=== PATIENT | female | born 1955 | race Caucasian/White ===

== ENCOUNTER 2017-08-18 21:40 | Emergency (ER) | payer OTHER ==
[~2017-08-18] VITALS: Ht 167.6 cm; Wt 84.0 kg
[~2017-08-18 21:40] MED LIST: ASPI325T PO; FLON0.053; LISI-360 PO; MAXA10TA2 PO; NEXI10GR PO; XYZA5TAB2 PO
[2017-08-18 21:49] VITALS: BP 147/80; PULSE 82; RESP 20; TEMP 97.5; O2SAT 96
--- NOTE | 2017-08-18 22:20 | PD ---
HPI Chief Complaint: Laceration/Skin Injury Time Seen by Provider: 22:35 Travel History International Travel<30 days: No Contact w/Intl Traveler<30days: No Traveled to known affect area: No History of Present Illness HPI The patient is a [id number] female that states she tripped over her big Labrador dog at home around 6:30 PM tonight and sustained a laceration on the left forehead when she hit the tile floor. There was no loss of consciousness. The patient does not have any nausea or vomiting. The patient admits to drinking one glass of wine prior to this event. She specifically denies any neck pain. She does not recall her last tetanus shot but knows that it is over 5 years ago. PFSH Past Medical History Arthritis: Yes (RIGHT KNEE) Anxiety: Yes Depression: Yes Heart Rhythm Problems: No Cancer: Yes (skin CA bilat shins, forehead) Cardiovascular Problems: Yes High Cholesterol: No Chest Pain: Yes Congestive Heart Failure: No Cerebrovascular Accident: No Diabetes: No Diminished Hearing: No GERD: Yes Genitourinary: No Headaches: Yes Hepatitis: No Hiatal Hernia: No Hypertension: Yes Insomnia: Yes Musculoskeletal: Yes Neurologic: Yes Reproductive: No Respiratory: No Immunizations Current: Yes Migraines: Yes Myocardial Infarction: No Seizures: No Thyroid Disease: No Ulcer: Yes (HISTORY OF ULCER) Tetanus Vaccination: > 5 Years ?: Not Tubal Ligation: Yes Past Surgical History Abdominal Surgery: No Appendectomy: Yes Cardiac Surgery: No Section: Yes Cholecystectomy: No Ear Surgery: No Endocrine Surgery: No Eye Surgery: No Genitourinary Surgery: No Gynecologic Surgery: Yes Hysterectomy: Yes Joint Replacement: Yes (RT KNEE) Oral Surgery: No Thoracic Surgery: No Other Surgery: Yes (gastric bypass, wrists) Social History Alcohol Use: Yes (occasionally) Tobacco Use: No Substance Use: No Allergies-Medications (Allergen,Severity, Reaction): Coded Allergies: erythromycin base (Unverified Allergy, Severe, SHORT OF BREATH, 06/23/17) levofloxacin (Unverified Allergy, Severe, 06/23/17) sulfamethoxazole (Unverified Allergy, Severe, 06/23/17) trimethoprim (Unverified Allergy, Severe, 06/23/17) ibuprofen (Unverified Adverse Reaction, Severe, 06/23/17) CANNOT HAVE DUE TO HX GASTRIC BYPASS morphine (Unverified Adverse Reaction, Mild, VOMITING, 06/23/17) Reported Meds & Prescriptions Reported Meds & Active Scripts Active Reported Tramadol (Tramadol HCl) 50 Mg Tab 50 Mg PO Q8H Ambien (Zolpidem Tartrate) 5 Mg Tab 5 Mg PO HS Cyanocobalamin Inj (Cyanocobalamin) 1,000 Mcg/Ml Inj 1,000 Mcg SQ Q30D Mometasone Topical (Mometasone Furoate) 0.01 % Oint 1 Applic TOPICAL DAILY PRN Dymista Nasal [place] (Azelastine-Fluticasone Nasal [place]) 137-50 Mcg [place] 1 [place] EACH NARE 1X DAY To each nostril. Viibryd (Vilazodone) 10 Mg Tab 10 Mg PO DAILY Levocetirizine 5 Mg Tab 5 Mg PO DAILY Review of Systems Except as stated in HPI: all other systems reviewed are Neg Physical Exam Narrative GENERAL: Well-nourished, well-developed patient who is alert and oriented 3 in minimal apparent distress with her left forehead laceration. Her vital signs show blood pressure 147/80 but are otherwise normal. SKIN: Focused skin assessment warm/dry. There is a 2 cm laceration on the left forehead. There is no associated skull deformity. HEAD: Normocephalic. Neither raccoon eyes nor gonzalez sign is present. EYES: No scleral icterus. No injection or drainage. NECK: Supple, trachea midline. No JVD or lymphadenopathy. There is no posterior spinous process tenderness or deformity, there is no neck tenderness at all. The patient is moving her neck without any problem. CARDIOVASCULAR: Regular rate and rhythm without murmurs, gallops, or rubs. RESPIRATORY: Breath sounds equal bilaterally. No accessory muscle use. GASTROINTESTINAL: Abdomen soft, non-tender, nondistended. MUSCULOSKELETAL: No cyanosis, or edema. BACK: Nontender without obvious deformity. No CVA tenderness. NEUROLOGICAL: Awake and alert. Cranial nerves II through XII intact. Motor and sensory grossly within normal limits. Five out of 5 muscle strength in all muscle groups. Normal speech. Data Data Last Documented VS Vital Signs Date Time Temp Pulse Resp B/P (MAP) Pulse Ox O2 Delivery O2 Flow Rate FiO2 08/18/17 21:49 97.5 82 20 147/80 (102) [address] Brain W/O Iv Contrast(Rout) (10/10/17 22:35) Wound Care (08/18/17 22:51) Wound Care (08/18/17 22:51) MDM Medical Decision Making Medical Screen Exam Complete: Yes Emergency Medical Condition: Yes Medical Record Reviewed: Yes Differential Diagnosis Scalp laceration, skull fracture, intracranial bleed Narrative Course The laceration was sutured by the physician news production assistant. The CT abdomen/pelvis shows no acute intracranial pathology. The patient will return in 5 days for suture removal or as needed if she has any problems. Diagnosis Primary Impression: Forehead laceration Additional Impression: Contusion of forehead Additional Instructions: Return in 5 days for suture removal and, if you have any problems, return immediately. Do not drink alcohol or drive on the Percocet 5. Drink plenty of water to avoid constipation when taking the Percocet. Med/Other Pt SpecificInfo: Prescription(s) given Scripts Oxycodone-Acetaminophen (Percocet) 5-325 mg Tab 1 TAB PO Q6H Y for PAIN, #12 TAB 0 Refills Prov: Ger Barboza MD 08/19/17 Disposition: 01 DISCHARGE HOME Condition: Stable Ger Barboza MD Aug 18, 2017 22:20
[2017-08-18] MEDS ORDERED: AZEL137S EACH NARE (22:23)
[2017-08-18] MEDS ORDERED: VIIB10TA PO (22:23)
[2017-08-18] MEDS ORDERED: TRAM50TA PO (22:23)
[2017-08-18] MEDS ORDERED: AMBI5TAB PO (22:23)
[2017-08-18] MEDS ORDERED: LEVOTAB PO (22:23)
[2017-08-18] MEDS ORDERED: MOME0.1O20 TOPICAL (22:23)
[2017-08-18] MEDS ORDERED: CYAN1000P SQ (22:23)
--- NOTE | 2017-08-18 22:51 | PD ---
Physical Exam Date Seen by Provider: Aug 18, 2017 Time Seen by Provider: 22:47 Narrative Well-nourished well-developed 61-year-old female with a 4 cm laceration to the frontal left lateral aspect of forehead. The laceration is in horizontal orientation. Data Data Last Documented VS Vital Signs Date Time Temp Pulse Resp B/P (MAP) Pulse Ox O2 Delivery O2 Flow Rate FiO2 08/18/17 21:49 97.5 82 20 147/80 (102) [address] Brain W/O Iv Contrast(Rout) (08/18/17 22:35) MDM Supervised Visit with KENN: Yes Narrative Course Well-nourished well-developed 61-year-old female with 4 cm laceration to frontal left lateral aspect of forehead. Patient sustained laceration when she tripped and fell at home. I was asked by provider Dr. Barboza to repair the laceration. The laceration was repaired using sutures. Please see my procedural narrative. Dr. Barboza retains care of this patient. Please see his documentation for further details and disposition. Procedures Procedure Narrative LACERATION LOCATION: Frontal left lateral aspect of forehead LENGTH: 4 cm NUMBER OF STITCHES/QUINN: 6 x 4. 0 Prolene REPAIR: The area of the laceration was prepped with Betadine and sterilely draped. The laceration was infiltrated with 1% lidocaine. The wound was copiously irrigated and explored without evidence of foreign body, tendon injury or neurovascular injury. The wound was closed using 6 x 4. 0 Prolene. This was a single layer repair. A sterile dressing was applied. The patient was advised to keep the dressing clean and dry. Patient tolerated the procedure well. Crystal Lucero Aug 18, 2017 22:51
--- NOTE | 2017-08-19 00:04 | RADRPT ---
EXAM DATE/TIME: 08/18/2017 23:25 [facility] COMPARISON: CT BRAIN W/O CONTRAST, May 11, 2014, 22:43. INDICATIONS : Trauma. Fall. RADIATION DOSE: 57.61 CTDIvol (mGy) MEDICAL HISTORY : Hypertension. SURGICAL HISTORY : None. ENCOUNTER: Initial ACUITY: 1 day PAIN SCALE: 10/10 LOCATION: Left frontal TECHNIQUE: Multiple contiguous axial images were obtained of the head. Using automated exposure control and adj ustment of the mA and/or kV according to patient size, radiation dose was kept as low as reasonably a chievable to obtain optimal diagnostic quality images. DICOM format image data is available electro nically for review and comparison. FINDINGS: CEREBRUM: The ventricles are normal for age. No evidence of midline shift, mass lesion, hemorrhage or acute in farction. No extra-axial fluid collections are seen. POSTERIOR FOSSA: The cerebellum and brainstem are intact. The 4th ventricle is midline. The cerebellopontine angle i s unremarkable. EXTRACRANIAL: The visualized portion of the orbits is intact. Minimal fluid in the right maxillary sinus. SKULL: The calvaria is intact. No evidence of skull fracture. CONCLUSION: Stable brain with no acute findings Jethro Quinones MD on August 19, 2017 at 0:01 Board Certified Radiologist. This report was verified electronically.
[2017-08-19] MEDS ORDERED: PERC5TAB12 PO (00:12)
[2017-08-19] MEDS ORDERED: TETANUS/DIPHTHERIA TOXOID ADULT 0.5 ML VIAL IM ONE (00:30)
[2017-08-19 00:55] VITALS: BP 159/91
== END 2017-08-19 00:56 | disposition home or self-care (01) ==
LOC: PHED 21:40
DX: S01.81XA Laceration without foreign body of other part of head, initial encounter (principal); W01.198A Fall on same level from slipping, tripping and stumbling with subsequent striking against other object, initial encounter; F32.9 Major depressive disorder, single episode, unspecified; F41.9 Anxiety disorder, unspecified; K21.9 Gastro-esophageal reflux disease without esophagitis; I10 Essential (primary) hypertension; Z23 Encounter for immunization
CPT/HCPCS: 12002; 70450; 90471; 90714